=== PATIENT | female | born 1965 | race American Indian/Alaskan Native ===

== ENCOUNTER 2018-03-19 08:21 | Inpatient (IN) | payer OTHER ==
[2018-03-19] MEDS ORDERED: NACL 0.9% 1000 ML 1,000 ML IV ONE (08:28)
[2018-03-19 09:13] LABS: Basophils % (Auto) 0.2 % (0.0-1.8); Eosinophils # (Auto) 0.1 K/mm3 (0.0-0.4); Eosinophils % (Auto) 0.7 % (0.0-4.3); Hematocrit 33.7 % (30.3-42.9); Hemoglobin 10.6 gm/dl (10.1-14.3); Lymphocytes # (Auto) 1.7 K/mm3 (1.2-5.4); Lymphocytes % (Auto) 14.5 % (13.4-35.0); Mean Corpuscular HGB Conc 31 % (30-34); Mean Corpuscular Volume 73 fl (79-97); Monocytes # (Auto) 0.6 K/mm3 (0.0-0.8); Monocytes % (Auto) 5.4 % (0.0-7.3); Platelet Count 425 K/mm3 (140-440); Red Cell Distribution Width 17.8 % (13.2-15.2)
[2018-03-19 09:13] LABS: Alanine Aminotransferase 17 units/L (7-56); Albumin 3.5 g/dL (3.9-5); BUN/Creatinine Ratio 15; Blood Urea Nitrogen 12 mg/dL (7-17); Calcium 9.4 mg/dL (8.4-10.2); Hemolysis Index 8
--- NOTE | 2018-03-19 10:09 | Emergency Department Report ---
ED Abdominal Pain HPI - General Chief Complaint: Abdominal Pain Stated Complaint: VOMITING BLOOD/ABD PAIN Time Seen by Provider: 03/19/18 10:03 Source: patient Mode of arrival: Ambulatory Limitations: No Limitations - History of Present Illness Initial Comments: Patient is a 53-year-old female presents to emergency room with complaints of abdominal pain 3 days and nausea and vomiting for 3 days. Patient states that she has not been able hold anything down for the 3 days. Patient states this morning she had vomited blood. He states it was dark blood as well as bright red blood in her vomitus. Patient denies chest pain shortness of breath. Patie nt denies fever or chills. Patient denies diarrhea. Patient denies what in stool. Patient states that the pain in her abdomen is a 6 out of 10 and is intermittent and spasmodic. Patient describes the pain as a sharp pain and intense that goes away every few minutes. Patient states the pain is n onradiating MD Complaint: abdominal pain -: Sudden Location: diffuse Radiation: none Migration to: no migration Severity: moderate Severity scale (0 -10): 6 Quality: sharp Consistency: intermittent Improves With: rest Worsens With: eating, vomiting, movement Associated Symptoms: nausea, vomiting, hematemesis. denies: diarrhea, fever, chills, constipation, dysuria, hematochezia, melena, hematuria, anorexia, syncope - Related Data LMP (females 10-50): unknown Allergies Allergy/AdvReac Type Severity Reaction Status Date / Time No Known Allergies Allergy Unverified 03/19/18 08:28 ED Review of Systems ROS: Stated complaint: VOMITING BLOOD/ABD PAIN Other details as noted in HPI Constitutional: denies: chills, fever Eyes: denies: eye pain, eye discharge, vision change ENT: denies: ear pain, throat pain Respiratory: denies: cough, shortness of breath, wheezing Cardiovascular: denies: chest pain, palpitations Endocrine: no symptoms reported Gastrointestinal: abdominal pain, nausea, vomiting, hematemesis. denies: diarrhea, melena, hematochezia Genitourinary: denies: urgency, dysuria, discharge Musculoskeletal: denies: back pain, joint swelling, arthralgia Skin: denies: rash, lesions Neurological: denies: headache, weakness, paresthesias Psychiatric: denies: anxiety, depression Hematological/Lymphatic: denies: easy bleeding, easy bruising ED Past Medical Hx - Past Medical History Previous Medical History?: Yes Additional medical history: Ankylosing spondylitis - Surgical History Past Surgical History?: No - Family History Family history: no significant - Social History Smoking Status: Never Smoker Substance Use Type: None ED Physical Exam - General Limitations: No Limitations General appearance: alert, in no apparent distress - Head Head exam: Present: atraumatic, normocephalic - Eye Eye exam: Present: normal appearance - ENT ENT exam: Present: mucous membranes moist - Neck Neck exam: Present: normal inspection - Respiratory Respiratory exam: Present: normal lung sounds bilaterally. Absent: respiratory distress - Cardiovascular Cardiovascular Exam: Present: regular rate, normal rhythm. Absent: systolic murmur, diastolic murmur, rubs, gallop - GI/Abdominal GI/Abdominal exam: Present: soft, tenderness (generalized tenderness), normal bowel sounds - Rectal Rectal exam: Present: normal rectal tone, heme (+) stool. Absent: hemorrhoids - Extremities Exam Extremities exam: Present: normal inspection - Back Exam Back exam: Present: normal inspection - Neurological Exam Neurological exam: Present: alert, oriented X3 - Psychiatric Psychiatric exam: Present: normal affect, normal mood - Skin Skin exam: Present: warm, dry, intact, normal color. Absent: rash ED Course Vital Signs 03/19/18 03/19/18 03/19/18 08:25 10:00 10:30 Temperature 97.7 F Pulse Rate 88 73 Respiratory 20 16 16 Rate Blood Pressure 209/93 169/86 Blood Pressure [Left] O2 Sat by Pulse 98 98 98 Oximetry 03/19/18 03/19/18 03/19/18 11:00 11:30 14:30 Temperature Pulse Rate 65 64 80 Respiratory 22 17 16 Rate Blood Pressure 151/61 157/72 Blood Pressure 152/77 [Left] O2 Sat by Pulse 97 98 98 Oximetry 03/19/18 03/19/18 03/19/18 16:30 19:15 19:44 Temperature Pulse Rate 81 74 74 Respiratory 16 18 Rate Blood Pressure 172/84 Blood Pressure 156/75 172/84 [Left] O2 Sat by Pulse 98 98 Oximetry - Reevaluation(s) Reevaluation #1: Discussed results with patient. Rectal exam done. Occult positive. Nurse Sierra in the room during the entire exam 03/19/18 13:34 CT abdomen still pending. Patient's pain is controlled.. 03/19/18 15:37 - Consultations Consultation #1: GI consult. Dr. Watkins wants patient admitted to the hospitalist service. 03/19/18 18:34 Consultation #2: Hospitalist consult for admission. Hospitalist to admit patient and assume care of patient. 03/19/18 18:34 ED Medical Decision Making - Lab Data Result diagrams: 03/19/18 08:40 03/19/18 08:39 - Radiology Data Radiology results: report reviewed FINAL REPORT EXAM: CT ABDOMEN PELVIS W CON HISTORY: abd pain. vomiting blood COMPARISON: None available. TECHNIQUE: Contiguous axial images were obtained. Additional sagittal and coronal reformatted images were obtained. Administration of IV contrast given per institution protocol. Images submitted for interpretation. Enteric contrast administered. FINDINGS: Exam is limited by patient body habitus is well as arm positioning along the anterior margin of the abdomen. Linear atelectasis at the lung bases. Visualized distal esophagus is relatively decompressed. Proximal stomach is decompressed. No gross inflammatory changes of the stomach. No adjacent fat stranding or fluid. Enteric contrast opacifies the stomach and majority of small bowel loops and colon. Diverticulosis of left colon. No diverticulitis. No focal inflammatory changes the bowel. The appendix is normal in caliber. Liver, spleen, pancreas and adrenal glands are grossly unremarkable. No calcified gallstones. No solid renal lesion. Bilateral nonobstructive renal calculi. Aorta is normal in caliber. Streak artifact from bilateral hip replacement limits evaluation of the soft tissue structures in the pelvis. The visualized urinary bladder appears partially decompressed. Slight lobulated contour the uterus. There may be underlying fibroids. Ovaries are grossly unremarkable. No free fluid or lymphadenopathy in the abdomen and pelvis. No free air pneumatosis. Ankylosis of the lumbar spine. Ankylosis of the SI joints. IMPRESSION: No gross inflammatory changes the visualized distal esophagus and stomach. Large and small bowel loops normal in caliber. The appendix is normal in caliber. Bilateral nonobstructive renal calculi. No hydronephrosis bilaterally. No other gross acute findings. Limited exam as described above. - Medical Decision Making Patient is a 53-year-old female that presents emergency room with abdominal pain and vomiting blood. Patient had positive Hemoccult. GI consultation recommends admission. Hospitalist to admit patient. Patient's labs unremarkable. CT is negative. - Differential Diagnosis abdominal pain. Nausea and vomiting. GI bleed. Critical Care Time: Yes Critical care attestation.: If time is entered above; I have spent that time in minutes in the direct care of this critically ill patient, excluding procedure time. Critical Care Time: 45 minutes ED Disposition Clinical Impression: GI bleed Qualifiers: GI bleed type/associated pathology: unspecified gastrointestinal hemorrhage type Qualified Code(s): K92.2 - Gastrointestinal hemorrhage, unspecified Abdominal pain Qualifiers: Abdominal location: generalized Qualified Code(s): R10.84 - Generalized abdominal pain Nausea & vomiting Qualifiers: Vomiting type: unspecified Vomiting Intractability: non-intractable Qualified Code(s): R11.2 - Nausea with vomiting, unspecified Disposition: DC-09 OP ADMIT IP TO THIS HOSP Is pt being admited?: Yes Does the pt Need Aspirin: No Condition: Critical Time of Disposition: 18:35
[2018-03-19 12:45] LABS: Bacteria,Urine 2+ /HPF (Negative); Bilirubin,Urine NEG (Negative); Blood,Urine SM (Negative); Color,Urine Yellow (Yellow); Mucus,Urine FEW /HPF
--- NOTE | 2018-03-19 17:42 | Cat Scan Report ---
FINAL REPORT EXAM: CT ABDOMEN PELVIS W CON HISTORY: abd pain. vomiting blood COMPARISON: None available. TECHNIQUE: Contiguous axial images were obtained. Additional sagittal and coronal reformatted images were obtained. Administration of IV contrast given per institution protocol. Images submitted for in terpretation. Enteric contrast administered. FINDINGS: Exam is limited by patient body habitus is well as arm positioning along the anterior margin of the a bdomen. Linear atelectasis at the lung bases. Visualized distal esophagus is relatively decompressed. Proxima l stomach is decompressed. No gross inflammatory changes of the stomach. No adjacent fat stranding or fluid. Enteric contrast opacifies the stomach and majority of small bowel loops and colon. Diverticu losis of left colon. No diverticulitis. No focal inflammatory changes the bowel. The appendix is norm al in caliber. Liver, spleen, pancreas and adrenal glands are grossly unremarkable. No calcified gallstones. No suellen d renal lesion. Bilateral nonobstructive renal calculi. Aorta is normal in caliber. Streak artifact f rom bilateral hip replacement limits evaluation of the soft tissue structures in the pelvis. The visu alized urinary bladder appears partially decompressed. Slight lobulated contour the uterus. There may be underlying fibroids. Ovaries are grossly unremarkable. No free fluid or lymphadenopathy in the ab domen and pelvis. No free air pneumatosis. Ankylosis of the lumbar spine. Ankylosis of the SI joints. IMPRESSION: No gross inflammatory changes the visualized distal esophagus and stomach. Large and small bowel loop s normal in caliber. The appendix is normal in caliber. Bilateral nonobstructive renal calculi. No hydronephrosis bilaterally. No other gross acute findings. Limited exam as described above.
[2018-03-19] MEDS ORDERED: DILAUDID IV ONE (19:26)
[2018-03-19] MEDS ORDERED: DILAUDID ONE (19:38)
[2018-03-19] MEDS ORDERED: APRESOLINE ONE (19:39)
[2018-03-19] MEDS: APRESOLINE IV PRN (19:44)
[2018-03-19] MEDS ORDERED: SODIUM CHLORIDE FLUSH SYRINGE 10 ML IV PRN (21:10)
[2018-03-19] MEDS ORDERED: DILAUDID IV PRN (21:10)
[2018-03-19] MEDS ORDERED: REGLAN PO PRN (21:10)
[2018-03-19] MEDS ORDERED: TYLENOL PO PRN (21:10)
[2018-03-19] MEDS ORDERED: ZOFRAN IV PRN (21:10)
--- NOTE | 2018-03-19 21:10 | Event Note ---
Date: 03/19/18 See H/p in reports GI Bleed
[2018-03-19] MEDS ORDERED: PEPCID IV SCH (22:00)
[2018-03-19] MEDS: PROTONIX 80 MG in NACL 0.9% 100 ML IV SCH (22:54)
[2018-03-19] MEDS: SODIUM CHLORIDE FLUSH SYRINGE 10 ML IV SCH (22:55)
[2018-03-19 23:44] LABS: Hematocrit 30.4 % (30.3-42.9); Hemoglobin 9.6 gm/dl (10.1-14.3)
[2018-03-20] MEDS: NACL 0.9% 1000 ML 1,000 ML IV SCH ×2 (00:09→09:44)
[2018-03-20] MEDS: PROTONIX 80 MG in NACL 0.9% 100 ML IV SCH (06:57)
[2018-03-20 06:58] LABS: Basophils % (Auto) 0.4 % (0.0-1.8); Eosinophils # (Auto) 0.1 K/mm3 (0.0-0.4); Hematocrit 28.2 % (30.3-42.9); Hemoglobin 9.1 gm/dl (10.1-14.3); Lymphocytes # (Auto) 1.7 K/mm3 (1.2-5.4); Lymphocytes % (Auto) 17.2 % (13.4-35.0); Mean Corpuscular HGB Conc 32 % (30-34); Mean Corpuscular Volume 72 fl (79-97); Monocytes # (Auto) 0.6 K/mm3 (0.0-0.8); Monocytes % (Auto) 5.9 % (0.0-7.3); Platelet Count 354 K/mm3 (140-440); Red Blood Count 3.92 M/mm3 (3.65-5.03); Red Cell Distribution Width 17.6 % (13.2-15.2)
--- NOTE | 2018-03-20 06:59 | History and Physical Report ---
CHIEF COMPLAINT: 1. Abdominal pain. 2. Nausea and vomiting. 3. Blood in the vomitus. HISTORY OF PRESENT ILLNESS: A 53-year-old female with a history of ankylosing spondylitis, comes in for abdominal pain of 3 days associated with vomiting about 3-4 times a day. Apparently, the patient vomited blood while vomiting. No diarrhea. No black tarry stools. Abdominal pain is about 6-8 on a scale of 1-10, which is intermittent in nature and sharp in nature. No exacerbating or relieving factors. PAST MEDICAL HISTORY: Significant for ankylosing spondylitis. PAST SURGICAL HISTORY: None. FAMILY HISTORY: Not significant. SOCIAL HISTORY: Does not smoke. REVIEW OF SYSTEMS: Significant for vomiting blood and intermittent abdominal pain. Otherwise, review of systems is negative. PHYSICAL EXAMINATION: GENERAL: Middle-aged female, cooperative during examination. VITAL SIGNS: Blood pressure is 139/52 and 172/84, temperature is 97.8, pulse is 74, respirations are 18. HEENT: Unremarkable. Pupils equal and reactive. NECK: Supple, no lymphadenopathy, no thyromegaly. LUNGS: Clear to auscultation and percussion. Good air entry. CARDIOVASCULAR: S1, S2 heard. No gallop, no murmur, no rub. Apical impulse in left fifth intercostal space and midclavicular line. ABDOMEN: Soft and benign. No guarding, no rigidity. RECTAL: Deferred. EXTREMITIES: Good pedal pulses. No pedal edema. CENTRAL NERVOUS SYSTEM: Alert and oriented x 4, nonfocal exam. SKIN: Normal. LABORATORY DATA: Significant for H and H of 10.6 and 33.7, white count of 11,600. Sodium is 138, potassium is 3.5, total protein is 8.8, albumin is 3.5, glucose is 108. Urine wbc 86. ASSESSMENT AND PLAN: 1. Upper gastrointestinal bleed. The patient started on Protonix drip. GI consult requested. Hemoglobin and hematocrit every 8 hours. Transfuse if necessary. 2. Urinary tract infection. The patient started on IV ceftriaxone. Pending cultures. 3. Malnutrition, mild to moderate. Dietitian consult after patient is taking food by mouth. 4. Hypokalemia, mild, supplemented. 5. Deep venous thrombosis prophylaxis, sequential compression devices and gastrointestinal prophylaxis. JOB# [id number] [facility]/SHAJI LOERA
[2018-03-20 07:08] LABS: Alanine Aminotransferase 13 units/L (7-56); Albumin 3.2 g/dL (3.9-5); BUN/Creatinine Ratio 15; Blood Urea Nitrogen 9 mg/dL (7-17); Calcium 8.8 mg/dL (8.4-10.2); Hemolysis Index 4
[2018-03-20] MEDS: ROCEPHIN/NS 2 GM/100 ML 2 GM/100 ML BAG IV SCH (08:37)
[2018-03-20] MEDS ORDERED: NACL 0.9% 1000 ML 1,000 ML IV SCH (09:00)
--- NOTE | 2018-03-20 09:11 | Gastroenterology Consultation ---
<DAVIE FERNANDEZ - Last Filed: 03/20/18 09:12> History of Present Illness - Reason for Consult Consult date: 03/20/18 GI bleed Requesting physician: YOBANI RICE III - History of Present Illness Patient is a 3 y/o female with PMH of ankylosing spondylitis and obesity who presented to ED with c/o upper abdominal pain and N/V x 3 days with bloody emesis to which GI has been consulted. This morning patient was resting in bed w/o acute distress. Family at bedside. She reports starting Cipro for an UTI last week and then developed abd pain with N/V for 2-3 days. Emesis was non- bloody for the first couple of days and then turned to coffee-ground color, along with black stools yesterday. No hematemesis or hematochezia. Last episode of CGE was yesterday and last episode of melena was overnight. No active signs of bleeding this am. Denies CP, SOB, dizziness, wt loss, dysphagia, odynophagia, diarrhea, or constipation. Takes Ibuprofen frequently at home. Hx of previous GI bleeding 2/2 a M-W tear approximately 19 years ago diagnosed with undergoing an EGD. No hx of liver disease. Past History Past Medical History: other (Ankylosing spondylitis, obesity) Past Surgical History: Other (bilateral hip) Social history: , lives with family. denies: smoking, alcohol abuse Medications and Allergies Allergies Allergy/AdvReac Type Severity Reaction Status Date / Time No Known Allergies Allergy Unverified 03/19/18 08:28 Active Meds: Active Medications Acetaminophen (Tylenol) 650 mg PO Q4H PRN PRN Reason: Pain MILD(1-3)/Fever >100.5/RUELAS Clonidine HCl (Catapres-Tts Patch) 0.1 mg TD QWEEK MARCO Hydralazine HCl (Apresoline) 5 mg IV Q3HR PRN PRN Reason: Elevated BP Last Admin: 03/19/18 19:44 Dose: 5 mg Documented by: Hydromorphone HCl (Dilaudid) 0.5 mg IV Q3H PRN PRN Reason: Pain , Severe (7-10) Sodium Chloride (Nacl 0.9% 1000 Ml) 1,000 mls @ 75 mls/hr IV DIRECT MARCO Last Admin: 03/20/18 00:09 Dose: 75 mls/hr Documented by: Pantoprazole Sodium 80 mg/ (Sodium Chloride) 100 mls @ 10 mls/hr IV DIRECT MARCO Last Admin: 03/20/18 06:57 Dose: 8 mg/hr, 10 mls/hr Documented by: Ceftriaxone Sodium (Rocephin/Ns 2 Gm/100 Ml) 2 gm in 100 mls @ 200 mls/hr IV Q24HR MARCO; Protocol Last Admin: 03/20/18 08:37 Dose: 200 mls/hr Documented by: Sodium Chloride (Nacl 0.9% 1000 Ml) 1,000 mls @ 50 mls/hr IV DIRECT MARCO Metoclopramide HCl (Reglan) 10 mg PO Q6H PRN PRN Reason: Nausea And Vomiting Ondansetron HCl (Zofran) 4 mg IV Q8H PRN PRN Reason: Nausea And Vomiting Last Admin: 03/20/18 00:09 Dose: 4 mg Documented by: Sodium Chloride (Sodium Chloride Flush Syringe 10 Ml) 10 ml IV BID MARCO Last Admin: 03/19/18 22:55 Dose: 10 ml Documented by: Sodium Chloride (Sodium Chloride Flush Syringe 10 Ml) 10 ml IV PRN PRN PRN Reason: LINE FLUSH medications reviewed/updated as required Review of Systems - Review of Systems All systems: negative Gastrointestinal: abdominal pain (epigastric), nausea, vomiting, coffee ground emesis, melena Exam - Constitutional Vital Signs: Temp Pulse Resp BP Pulse Ox 97.8 F 76 20 148/74 95 03/20/18 05:22 03/20/18 05:22 03/20/18 05:22 03/20/18 05:22 03/20/18 05:22 General appearance: no acute distress, obese - EENT Eyes: PERRL, EOM intact ENT: hearing intact - Respiratory Respiratory: bilateral: CTA - Cardiovascular Rhythm: regular Heart Sounds: Present: S1 & S2 - Gastrointestinal General gastrointestinal: Present: soft, tender (slightl TTP in epigastric area), non-distended, normal bowel sounds - Neurologic Neurological: alert and oriented x3 - Labs CBC & Chem 7: 03/20/18 06:10 03/20/18 06:10 Lab Results: Laboratory Results - last 24 hr 03/19/18 03/19/18 03/19/18 08:39 08:40 11:58 WBC 11.6 H RBC 4.60 Hgb 10.6 Hct 33.7 MCV 73 L MCH 23 L MCHC 31 RDW 17.8 H Plt Count 425 Lymph % (Auto) 14.5 [place] % (Auto) 5.4 Eos % (Auto) 0.7 Baso % (Auto) 0.2 Lymph # 1.7 [place] # 0.6 Eos # 0.1 Baso # 0.0 Seg Neutrophils % 79.2 H Seg Neutrophils # 9.2 H Sodium 138 Potassium 3.5 L Chloride 99.1 Carbon Dioxide 25 Anion Gap 17 BUN 12 Creatinine 0.8 Estimated GFR > 60 BUN/Creatinine Ratio 15 Glucose 108 H Lactic Acid Calcium 9.4 Total Bilirubin 0.30 AST 24 ALT 17 Alkaline Phosphatase 81 Total Protein 8.8 H Albumin 3.5 L Albumin/Globulin Ratio 0.7 Urine Color Yellow Urine Turbidity Cloudy Urine pH 6.0 Ur Specific [place] 1.020 Urine Protein 30 mg/dl Urine Glucose (UA) Neg Urine Ketones Tr Urine Blood Sm Urine Nitrite Neg Urine Bilirubin Neg Urine Urobilinogen 4.0 Ur Leukocyte Esterase Lg Urine WBC (Auto) 86.0 H Urine RBC (Auto) 19.0 U Epithel Cells (Auto) 22.0 H Urine Bacteria (Auto) 2+ Urine Mucus Few 03/19/18 03/19/18 03/20/18 15:25 23:30 06:10 WBC 9.8 RBC 3.92 Hgb 9.6 L 9.1 L Hct 30.4 28.2 L MCV 72 L MCH 23 L MCHC 32 RDW 17.6 H Plt Count 354 Lymph % (Auto) 17.2 [place] % (Auto) 5.9 Eos % (Auto) 1.0 Baso % (Auto) 0.4 Lymph # 1.7 [place] # 0.6 Eos # 0.1 Baso # 0.0 Seg Neutrophils % 75.5 H Seg Neutrophils # 7.4 Sodium Potassium Chloride Carbon Dioxide Anion Gap BUN Creatinine Estimated GFR BUN/Creatinine Ratio Glucose Lactic Acid 0.90 Calcium Total Bilirubin AST ALT Alkaline Phosphatase Total Protein Albumin Albumin/Globulin Ratio Urine Color Urine Turbidity Urine pH Ur Specific [place] Urine Protein Urine Glucose (UA) Urine Ketones Urine Blood Urine Nitrite Urine Bilirubin Urine Urobilinogen Ur Leukocyte Esterase Urine WBC (Auto) Urine RBC (Auto) U Epithel Cells (Auto) Urine Bacteria (Auto) Urine Mucus 03/20/18 06:10 WBC RBC Hgb Hct MCV MCH MCHC RDW Plt Count Lymph % (Auto) [place] % (Auto) Eos % (Auto) Baso % (Auto) Lymph # [place] # Eos # Baso # Seg Neutrophils % Seg Neutrophils # Sodium 139 Potassium 3.9 Chloride 103.0 Carbon Dioxide 24 Anion Gap 16 BUN 9 Creatinine 0.6 L Estimated GFR > 60 BUN/Creatinine Ratio 15 Glucose 89 Lactic Acid Calcium 8.8 Total Bilirubin 0.30 AST 19 ALT 13 Alkaline Phosphatase 69 Total Protein 7.3 Albumin 3.2 L Albumin/Globulin Ratio 0.8 Urine Color Urine Turbidity Urine pH Ur Specific [place] Urine Protein Urine Glucose (UA) Urine Ketones Urine Blood Urine Nitrite Urine Bilirubin Urine Urobilinogen Ur Leukocyte Esterase Urine WBC (Auto) Urine RBC (Auto) U Epithel Cells (Auto) Urine Bacteria (Auto) Urine Mucus Assessment and Plan 1.UGIB -H/H 9.1/28.2-trending down -continue to monitor H/H and transfuse as needed -hold blood thinning medications -patient reports epigastric pain and N/V x 3 days after starting antibiotics for UTI with developing coffee-ground emesis and melena yesterday -currently HD stable- no active signs of bleeding this am -etiology-possibly 2/2 M-W tear vs ulcer vs other -EGD this am for further evaluation -Keep NPO -continue PPI and supportive care -will follow <CORINNE PAGE - Last Filed: 03/20/18 10:40> Medications and Allergies Active Meds: Active Medications Acetaminophen (Tylenol) 650 mg PO Q4H PRN PRN Reason: Pain MILD(1-3)/Fever >100.5/RUELAS Clonidine HCl (Catapres-Tts Patch) 0.1 mg TD QWEEK MARCO Hydralazine HCl (Apresoline) 5 mg IV Q3HR PRN PRN Reason: Elevated BP Last Admin: 03/19/18 19:44 Dose: 5 mg Documented by: Hydromorphone HCl (Dilaudid) 0.5 mg IV Q3H PRN PRN Reason: Pain , Severe (7-10) Sodium Chloride (Nacl 0.9% 1000 Ml) 1,000 mls @ 75 mls/hr IV DIRECT MARCO Last Admin: 03/20/18 09:44 Dose: 75 mls/hr Documented by: Pantoprazole Sodium 80 mg/ (Sodium Chloride) 100 mls @ 10 mls/hr IV DIRECT MARCO Last Admin: 03/20/18 06:57 Dose: 8 mg/hr, 10 mls/hr Documented by: Ceftriaxone Sodium (Rocephin/Ns 2 Gm/100 Ml) 2 gm in 100 mls @ 200 mls/hr IV Q24HR MACRO; Protocol Last Admin: 03/20/18 08:37 Dose: 200 mls/hr Documented by: Sodium Chloride (Nacl 0.9% 1000 Ml) 1,000 mls @ 50 mls/hr IV DIRECT MARCO Stop: 03/21/18 08:59 Metoclopramide HCl (Reglan) 10 mg PO Q6H PRN PRN Reason: Nausea And Vomiting Ondansetron HCl (Zofran) 4 mg IV Q8H PRN PRN Reason: Nausea And Vomiting Last Admin: 03/20/18 00:09 Dose: 4 mg Documented by: Sodium Chloride (Sodium Chloride Flush Syringe 10 Ml) 10 ml IV BID MARCO Last Admin: 03/19/18 22:55 Dose: 10 ml Documented by: Sodium Chloride (Sodium Chloride Flush Syringe 10 Ml) 10 ml IV PRN PRN PRN Reason: LINE FLUSH Exam - Constitutional Vital Signs: Temp Pulse Resp BP Pulse Ox 97.8 F 71 18 161/72 100 03/20/18 09:39 03/20/18 09:39 03/20/18 09:39 03/20/18 09:39 03/20/18 09:39 - Labs CBC & Chem 7: 03/20/18 06:10 03/20/18 06:10 Lab Results: Laboratory Results - last 24 hr 03/19/18 03/19/18 03/19/18 11:58 15:25 23:30 WBC RBC Hgb 9.6 L Hct 30.4 MCV MCH MCHC RDW Plt Count Lymph % (Auto) [place] % (Auto) Eos % (Auto) Baso % (Auto) Lymph # [place] # Eos # Baso # Seg Neutrophils % Seg Neutrophils # Sodium Potassium Chloride Carbon Dioxide Anion Gap BUN Creatinine Estimated GFR BUN/Creatinine Ratio Glucose Lactic Acid 0.90 Calcium Total Bilirubin AST ALT Alkaline Phosphatase Total Protein Albumin Albumin/Globulin Ratio Urine Color Yellow Urine Turbidity Cloudy Urine pH 6.0 Ur Specific [place] 1.020 Urine Protein 30 mg/dl Urine Glucose (UA) Neg Urine Ketones Tr Urine Blood Sm Urine Nitrite Neg Urine Bilirubin Neg Urine Urobilinogen 4.0 Ur Leukocyte Esterase Lg Urine WBC (Auto) 86.0 H Urine RBC (Auto) 19.0 U Epithel Cells (Auto) 22.0 H Urine Bacteria (Auto) 2+ Urine Mucus Few 03/20/18 03/20/18 06:10 06:10 WBC 9.8 RBC 3.92 Hgb 9.1 L Hct 28.2 L MCV 72 L MCH 23 L MCHC 32 RDW 17.6 H Plt Count 354 Lymph % (Auto) 17.2 [place] % (Auto) 5.9 Eos % (Auto) 1.0 Baso % (Auto) 0.4 Lymph # 1.7 [place] # 0.6 Eos # 0.1 Baso # 0.0 Seg Neutrophils % 75.5 H Seg Neutrophils # 7.4 Sodium 139 Potassium 3.9 Chloride 103.0 Carbon Dioxide 24 Anion Gap 16 BUN 9 Creatinine 0.6 L Estimated GFR > 60 BUN/Creatinine Ratio 15 Glucose 89 Lactic Acid Calcium 8.8 Total Bilirubin 0.30 AST 19 ALT 13 Alkaline Phosphatase 69 Total Protein 7.3 Albumin 3.2 L Albumin/Globulin Ratio 0.8 Urine Color Urine Turbidity Urine pH Ur Specific [place] Urine Protein Urine Glucose (UA) Urine Ketones Urine Blood Urine Nitrite Urine Bilirubin Urine Urobilinogen Ur Leukocyte Esterase Urine WBC (Auto) Urine RBC (Auto) U Epithel Cells (Auto) Urine Bacteria (Auto) Urine Mucus Assessment and Plan Pt seen and examined. Agree with note above. Will plan for EGD today. Further recommendations following procedure. Rest as above.
--- NOTE | 2018-03-20 09:46 | Progress Note ---
Assessment and Plan Assessment and plan: Patient is a 53 y/o female with PMH of ankylosing spondylitis and obesity who presented to ED with c/o upper abdominal pain and N/V x 3 days with bloody emesis to which GI has been consulted. This morning patient was resting in bed w/o acute distress. Family at bedside. She reports starting Cipro for an UTI last week and then developed abd pain with N/V for 2-3 days. Emesis was non- bloody for the first couple of days and then turned to coffee-ground color, along with black stools yesterday. No hematemesis or hematochezia. Last episode of coffee-ground emesis was yesterday and last episode of melena was overnight. No active signs of bleeding this am. Denies CP, SOB, dizziness, wt loss, dysphagia, odynophagia, diarrhea, or constipation. Takes Ibuprofen frequently at home. Hx of previous GI bleeding 2/2 a M-W tear approximately 19 years ago diagnosed with undergoing an EGD. No hx of liver disease. On admission the patient was being monitored with serial H&H and plan for endoscopy today. She was provided about NSAID use to discontinue. Peritoneal Irritation UGIB PYURIA- RECENTLY TREATED FOR UTI HYPOKALEMIA Morbidly Obese NSAID USE ANKYLOSING SPONDYLITIS PLAN Supportive care H/H Relatively stable Await EGD RESULT CONTINUE PPI DVT/GI PROPHY PLAN DISCUSSED WITH THE PATIENT. History Interval history: Patient seen and examined, in no acute distress. admitted with suspicion for GI bleed. Hospitalist Physical - Physical exam Narrative exam: VITAL SIGNS: Reviewed. GENERAL: The patient appeared well nourished and normally developed. Otherwise obese. Vital signs as documented. HEAD: No signs of head trauma. EYES: Pupils are equal. Extraocular motions intact. EARS: Hearing grossly intact. MOUTH: Oropharynx is normal. NECK: No adenopathy, no JVD. CHEST: Chest with clear breath sounds bilaterally. No wheezes, rales, or rhonchi. CARDIAC: Regular rate and rhythm. S1 and S2, without murmurs, gallops, or rubs. VASCULAR: No Edema. Peripheral pulses normal and equal in all extremities. ABDOMEN: Soft, without detectable tenderness. No sign of distention. No rebound or guarding, and no masses palpated. Bowel Sounds normal. MUSCULOSKELETAL: Good range of motion of all major joints. Extremities without clubbing, cyanosis or edema. NEUROLOGIC EXAM: Alert and oriented x 3. No focal sensory or strength deficits. Speech normal. Follows commands. PSYCHIATRIC: Mood normal. SKIN: No rash or lesions. - Constitutional Vitals: Temp Pulse Resp BP Pulse Ox 97.8 F 71 18 161/72 100 03/20/18 09:39 03/20/18 09:39 03/20/18 09:39 03/20/18 09:39 03/20/18 09:39 Results - Labs CBC & Chem 7: 03/20/18 13:22 03/20/18 06:10 Labs: Laboratory Last Values WBC 9.8 K/mm3 (4.5-11.0) 03/20/18 06:10 RBC 3.92 M/mm3 (3.65-5.03) 03/20/18 06:10 Hgb 9.1 gm/dl (10.1-14.3) L 03/20/18 06:10 Hct 28.2 % (30.3-42.9) L 03/20/18 06:10 MCV 72 fl (79-97) L 03/20/18 06:10 MCH 23 pg (28-32) L 03/20/18 06:10 MCHC 32 % (30-34) 03/20/18 06:10 RDW 17.6 % (13.2-15.2) H 03/20/18 06:10 Plt Count 354 K/mm3 (140-440) 03/20/18 06:10 Lymph % (Auto) 17.2 % (13.4-35.0) 03/20/18 06:10 [place] % (Auto) 5.9 % (0.0-7.3) 03/20/18 06:10 Eos % (Auto) 1.0 % (0.0-4.3) 03/20/18 06:10 Baso % (Auto) 0.4 % (0.0-1.8) 03/20/18 06:10 Lymph # 1.7 K/mm3 (1.2-5.4) 03/20/18 06:10 [place] # 0.6 K/mm3 (0.0-0.8) 03/20/18 06:10 Eos # 0.1 K/mm3 (0.0-0.4) 03/20/18 06:10 Baso # 0.0 K/mm3 (0.0-0.1) 03/20/18 06:10 Seg Neutrophils % 75.5 % (40.0-70.0) H 03/20/18 06:10 Seg Neutrophils # 7.4 K/mm3 (1.8-7.7) 03/20/18 06:10 Sodium 139 mmol/L (137-145) 03/20/18 06:10 Potassium 3.9 mmol/L (3.6-5.0) 03/20/18 06:10 Chloride 103.0 mmol/L (98-107) 03/20/18 06:10 Carbon Dioxide 24 mmol/L (22-30) 03/20/18 06:10 Anion Gap 16 mmol/L 03/20/18 06:10 BUN 9 mg/dL (7-17) 03/20/18 06:10 Creatinine 0.6 mg/dL (0.7-1.2) L 03/20/18 06:10 Estimated GFR > 60 ml/min 03/20/18 06:10 BUN/Creatinine Ratio 15 % 03/20/18 06:10 Glucose 89 mg/dL (65-100) 03/20/18 06:10 Lactic Acid 0.90 mmol/L (0.7-2.0) 03/19/18 15:25 Calcium 8.8 mg/dL (8.4-10.2) 03/20/18 06:10 Total Bilirubin 0.30 mg/dL (0.1-1.2) 03/20/18 06:10 AST 19 units/L (5-40) 03/20/18 06:10 ALT 13 units/L (7-56) 03/20/18 06:10 Alkaline Phosphatase 69 units/L (35-129) 03/20/18 06:10 Total Protein 7.3 g/dL (6.3-8.2) 03/20/18 06:10 Albumin 3.2 g/dL (3.9-5) L 03/20/18 06:10 Albumin/Globulin Ratio 0.8 % 03/20/18 06:10 Urine Color Yellow (Yellow) 03/19/18 11:58 Urine Turbidity Cloudy (Clear) 03/19/18 11:58 Urine pH 6.0 (5.0-7.0) 03/19/18 11:58 Ur Specific [place] 1.020 (1.003-1.030) 03/19/18 11:58 Urine Protein 30 mg/dl mg/dL (Negative) 03/19/18 11:58 Urine Glucose (UA) Neg mg/dL (Negative) 03/19/18 11:58 Urine Ketones Tr mg/dL (Negative) 03/19/18 11:58 Urine Blood Sm (Negative) 03/19/18 11:58 Urine Nitrite Neg (Negative) 03/19/18 11:58 Urine Bilirubin Neg (Negative) 03/19/18 11:58 Urine Urobilinogen 4.0 mg/dL (<2.0) 03/19/18 11:58 Ur Leukocyte Esterase Lg (Negative) 03/19/18 11:58 Urine WBC (Auto) 86.0 /HPF (0.0-6.0) H 03/19/18 11:58 Urine RBC (Auto) 19.0 /HPF (0.0-6.0) 03/19/18 11:58 U Epithel Cells (Auto) 22.0 /HPF (0-13.0) H 03/19/18 11:58 Urine Bacteria (Auto) 2+ /HPF (Negative) 03/19/18 11:58 Urine Mucus Few /HPF 03/19/18 11:58
[2018-03-20] MEDS ORDERED: CATAPRES-TTS PATCH TD SCH (10:00)
--- NOTE | 2018-03-20 10:01 | Anesthesia Consultation ---
Anesthesia Consult and Med Hx - Airway Anesthetic Teeth Evaluation: Good ROM Head & Neck: Inadequate Mental/Hyoid Distance: Adequate Mallampati Class: Class II Intubation Access Assessment: Difficult - Pulmonary Exam CTA: Yes - Cardiac Exam Cardiac Exam: RRR - Pre-Operative Health Status ASA Pre-Surgery Classification: ASA3 Proposed Anesthetic Plan: MAC - Pulmonary Hx Asthma: No Hx Pneumonia: No - Central Nervous System Hx Psychiatric Problems: No - Other Systems Hx Obesity: Yes (morbid) - Additional Comments Anesthesia Medical History Comments: Patient has ankylosing spondylitis with severe cervical spine involvement. Her neck is essentially frozen in the flexed position. She would require fiber optic assistance for intubation.
[2018-03-20] MEDS ORDERED: DIPRIVAN 10 MG/ML IV ONE (10:21)
[2018-03-20] MEDS ORDERED: VERSED ONE (10:21)
[2018-03-20] MEDS ORDERED: WATER FOR IRRIG STERILE IR ONE (10:28)
--- NOTE | 2018-03-20 10:56 | Operative Report ---
Operative Report Operative Report: Esophagogastroduodenoscopy Procedure Note with Biopsies Date of procedure: 03/20/2018 Endoscopist: Kashif Watkins Pre-op diagnosis: UGI bleed, hematemesis Post-op diagnosis: Large, cratered gastric ulcer without high risk bleeding stigmata; severe erosive gastritis Anesthesia: MAC Complications: No immediate complications Estimated blood loss: minimal Procedure: After consent was obtained, the patient was placed in the left lateral decubitus position. The fujinon endoscope was inserted into the celestine ent's mouth under direct vision, and advanced into the 2nd portion of the duodenum without difficulty. The patient tolerated the procedure well. The views of the mucosa were good. Patient's vital signs were monitored continuously throughout the procedure. Findings: There was a non-obstructing, widely patent at the GE junction. Otherwise, the esophagus appeared normal. There was a large (~2 x 2 cm) cratered ulcer along the lesser curvature of the gastric body. There were a couple small heme spots, but no high risk bleeding stigmata. Biopsies were taking from the edge of the ulcer to rule out dysplasia/malignancy. There was severe erosive gastritis throughout the stomach. The duodenum appeared normal. Bile was seen throughout the visualized portion of the duodenum. Impression: 1. Large, cratered gastric ulcer without high risk bleeding stigmata. Biopsies were obtained. 2. Severe erosive gastritis. Biopsied. Recommendations: -follow-up pathology -avoid all nsaid medications -PPI po BID dosing -okay to restart diet and advance as tolerated
--- NOTE | 2018-03-20 11:04 | Post Anesthesia Evaluation ---
- Post Anesthesia Evaluation Patient Participated: Yes Airway Patent: Yes Stable Respiratory Function: Yes Temp > 96.8F: Yes Pain Manageable: Yes Adequeate Hydration: Yes Anesthesia Complications: No
[2018-03-20 13:38] LABS: Hematocrit 30.2 % (30.3-42.9); Hemoglobin 9.7 gm/dl (10.1-14.3)
[2018-03-20] MEDS: SODIUM CHLORIDE FLUSH SYRINGE 10 ML IV SCH ×2 (18:40→21:56)
[2018-03-20 19:11] LABS: Bacteria,Urine 1+ /HPF (Negative); Bilirubin,Urine NEG (Negative); Blood,Urine NEG (Negative); Color,Urine Yellow (Yellow); Mucus,Urine FEW /HPF; Protein,Urine <15 mg/dL mg/dL (Negative)
[2018-03-20] MEDS: PROTONIX IV SCH (21:56)
[2018-03-21] MEDS: NACL 0.9% 1000 ML 1,000 ML IV SCH (04:56)
[2018-03-21 05:16] LABS: Hematocrit 27.7 % (30.3-42.9); Hemoglobin 8.9 gm/dl (10.1-14.3); Mean Corpuscular HGB Conc 32 % (30-34); Mean Corpuscular Volume 73 fl (79-97); Platelet Count 337 K/mm3 (140-440); Red Blood Count 3.77 M/mm3 (3.65-5.03); Red Cell Distribution Width 17.3 % (13.2-15.2)
[2018-03-21 05:50] LABS: BUN/Creatinine Ratio 9; Blood Urea Nitrogen 8 mg/dL (7-17); Calcium 8.6 mg/dL (8.4-10.2); Hemolysis Index 3
[2018-03-21] MEDS: PROTONIX IV SCH (09:20)
[2018-03-21] MEDS: ROCEPHIN/NS 2 GM/100 ML 2 GM/100 ML BAG IV SCH (09:35)
[2018-03-21] MEDS: SODIUM CHLORIDE FLUSH SYRINGE 10 ML IV SCH ×2 (09:35→21:27)
--- NOTE | 2018-03-21 11:43 | Gastroenterology Progress Note ---
<DAVIE FERNANDEZ - Last Filed: 03/21/18 11:36> Assessment and Plan 1.UGIB -H/H 8.9/27.7-slight trend down -continue to monitor H/H and transfuse as needed -hold blood thinning medications -s/p EGD yesterday that revealed a large cratered gastric ulcer w/o high risk bleeding stigmata and severe erosive gastritis -bx results pending-f/u in clinic -clinically, patient is stable but reports continued BMs overnight and this am with black stool. Abd pain improved. No N/V. Tolerating liquids. -okay to advance to GI soft -continue PPI BID -avoid NSAIDs -continue supportive care -if labs stable in am with no further bleeding, okay to be d/c per GI standpoint on high dose PPI with follow up in clinic ~2 weeks Subjective Date of service: 03/21/18 Principal diagnosis: GI bleed Interval history: Patient resting in bed this am w/o acute distress. Reports BMs x 3 overnight and 1 this am with black stool. Abd pain improved and no N/V. Tolerating liquids. Objective - Constitutional Vitals: Temp Pulse Resp BP Pulse Ox 98.4 F 80 18 155/69 99 03/20/18 18:29 03/20/18 18:29 03/20/18 18:29 03/20/18 18:29 03/20/18 18:29 General appearance: no acute distress, obese - Respiratory Respiratory: bilateral: CTA (anterior) - Cardiovascular Rhythm: regular Heart Sounds: Present: S1 & S2 - Gastrointestinal General gastrointestinal: Present: soft, tender (slight TTP in epigastric area), non-distended, normal bowel sounds - Neurologic Neurological: alert and oriented x3 - Labs CBC & Chem 7: 03/21/18 04:34 03/21/18 04:34 Labs: Laboratory Results - last 24 hr 03/20/18 03/20/18 03/21/18 13:22 15:40 04:34 WBC 7.0 RBC 3.77 Hgb 9.7 L 8.9 L Hct 30.2 L 27.7 L MCV 73 L MCH 24 L MCHC 32 RDW 17.3 H Plt Count 337 Sodium Potassium Chloride Carbon Dioxide Anion Gap BUN Creatinine Estimated GFR BUN/Creatinine Ratio Glucose Calcium Urine Color Yellow Urine Turbidity Clear Urine pH 6.0 Ur Specific [place] 1.017 Urine Protein <15 mg/dl Urine Glucose (UA) Neg Urine Ketones Neg Urine Blood Neg Urine Nitrite Neg Urine Bilirubin Neg Urine Urobilinogen 4.0 Ur Leukocyte Esterase Sm Urine WBC (Auto) 14.0 H Urine RBC (Auto) 7.0 U Epithel Cells (Auto) 3.0 Urine Bacteria (Auto) 1+ Urine Mucus Few 03/21/18 04:34 WBC RBC Hgb Hct MCV MCH MCHC RDW Plt Count Sodium 142 Potassium 3.7 Chloride 106.3 Carbon Dioxide 25 Anion Gap 14 BUN 8 Creatinine 0.9 Estimated GFR > 60 BUN/Creatinine Ratio 9 Glucose 97 Calcium 8.6 Urine Color Urine Turbidity Urine pH Ur Specific [place] Urine Protein Urine Glucose (UA) Urine Ketones Urine Blood Urine Nitrite Urine Bilirubin Urine Urobilinogen Ur Leukocyte Esterase Urine WBC (Auto) Urine RBC (Auto) U Epithel Cells (Auto) Urine Bacteria (Auto) Urine Mucus <CORINNE PAGE A - Last Filed: 03/21/18 17:01> Assessment and Plan pt seen and examined. agree with note as above. monitor overnight and possible d/c tomorrow if no signs of bleeding and h/h stable. will need to be on PPI BID dosing and no nsaid's Objective - Constitutional Vitals: Temp Pulse Resp BP Pulse Ox 98.1 F 60 15 150/70 99 03/21/18 16:12 03/21/18 16:12 03/21/18 16:12 03/21/18 16:12 03/21/18 16:12 - Labs CBC & Chem 7: 03/21/18 04:34 03/21/18 04:34 Labs: Laboratory Results - last 24 hr 03/20/18 03/21/18 03/21/18 15:40 04:34 04:34 WBC 7.0 RBC 3.77 Hgb 8.9 L Hct 27.7 L MCV 73 L MCH 24 L MCHC 32 RDW 17.3 H Plt Count 337 Sodium 142 Potassium 3.7 Chloride 106.3 Carbon Dioxide 25 Anion Gap 14 BUN 8 Creatinine 0.9 Estimated GFR > 60 BUN/Creatinine Ratio 9 Glucose 97 Calcium 8.6 Urine Color Yellow Urine Turbidity Clear Urine pH 6.0 Ur Specific [place] 1.017 Urine Protein <15 mg/dl Urine Glucose (UA) Neg Urine Ketones Neg Urine Blood Neg Urine Nitrite Neg Urine Bilirubin Neg Urine Urobilinogen 4.0 Ur Leukocyte Esterase Sm Urine WBC (Auto) 14.0 H Urine RBC (Auto) 7.0 U Epithel Cells (Auto) 3.0 Urine Bacteria (Auto) 1+ Urine Mucus Few
--- NOTE | 2018-03-21 15:54 | Progress Note ---
Assessment and Plan Assessment and plan: Patient is a 53 y/o female with PMH of ankylosing spondylitis and obesity who presented to ED with c/o upper abdominal pain and N/V x 3 days with bloody emesis to which GI has been consulted. This morning patient was resting in bed w/o acute distress. Family at bedside. She reports starting Cipro for an UTI last week and then developed abd pain with N/V for 2-3 days. Emesis was non- bloody for the first couple of days and then turned to coffee-ground color, along with black stools yesterday. No hematemesis or hematochezia. Last episode of coffee-ground emesis was yesterday and last episode of melena was overnight. No active signs of bleeding this am. Denies CP, SOB, dizziness, wt loss, dysphagia, odynophagia, diarrhea, or constipation. Takes Ibuprofen frequently at home. Hx of previous GI bleeding 2/2 a M-W tear approximately 19 years ago diagnosed with undergoing an EGD. No hx of liver disease. On admission the patient was being monitored with serial H&H and plan for endoscopy today. She was provided about NSAID use to discontinue. Peritoneal Irritation UGIB PYURIA- RECENTLY TREATED FOR UTI HYPOKALEMIA Morbidly Obese NSAID USE ANKYLOSING SPONDYLITIS PLAN Supportive care H/H Relatively stable EGD results reviewed cratered gastric ulcer w/o high risk bleeding stigmata and severe erosive gastritis CONTINUE PPI Patient's Will follow at the GI office for pathology results. DVT/GI PROPHY PLAN DISCUSSED WITH THE PATIENT. Discharge in a.m. if hemoglobin remains stable History Interval history: Patient seen and examined, in no acute distress. admitted with suspicion for GI bleed. Reports one black stool today but no other complaints. Hospitalist Physical - Physical exam Narrative exam: VITAL SIGNS: Reviewed. GENERAL: The patient appeared well nourished and normally developed. Otherwise obese. Vital signs as documented. HEAD: No signs of head trauma. EYES: Pupils are equal. Extraocular motions intact. EARS: Hearing grossly intact. MOUTH: Oropharynx is normal. NECK: No adenopathy, no JVD. CHEST: Chest with clear breath sounds bilaterally. No wheezes, rales, or rhonchi. CARDIAC: Regular rate and rhythm. S1 and S2, without murmurs, gallops, or rubs. VASCULAR: No Edema. Peripheral pulses normal and equal in all extremities. ABDOMEN: Soft, without detectable tenderness. No sign of distention. No rebound or guarding, and no masses palpated. Bowel Sounds normal. MUSCULOSKELETAL: Good range of motion of all major joints. Extremities without clubbing, cyanosis or edema. NEUROLOGIC EXAM: Alert and oriented x 3. No focal sensory or strength deficits. Speech normal. Follows commands. PSYCHIATRIC: Mood normal. SKIN: No rash or lesions. - Constitutional Vitals: Temp Pulse Resp BP Pulse Ox 98.0 F 79 16 145/71 98 03/21/18 12:40 03/21/18 12:40 03/21/18 12:40 03/21/18 12:40 03/21/18 12:40 Results - Labs CBC & Chem 7: 03/21/18 04:34 03/21/18 04:34 Labs: Laboratory Last Values WBC 7.0 K/mm3 (4.5-11.0) 03/21/18 04:34 RBC 3.77 M/mm3 (3.65-5.03) 03/21/18 04:34 Hgb 8.9 gm/dl (10.1-14.3) L 03/21/18 04:34 Hct 27.7 % (30.3-42.9) L 03/21/18 04:34 MCV 73 fl (79-97) L 03/21/18 04:34 MCH 24 pg (28-32) L 03/21/18 04:34 MCHC 32 % (30-34) 03/21/18 04:34 RDW 17.3 % (13.2-15.2) H 03/21/18 04:34 Plt Count 337 K/mm3 (140-440) 03/21/18 04:34 Lymph % (Auto) 17.2 % (13.4-35.0) 03/20/18 06:10 [place] % (Auto) 5.9 % (0.0-7.3) 03/20/18 06:10 Eos % (Auto) 1.0 % (0.0-4.3) 03/20/18 06:10 Baso % (Auto) 0.4 % (0.0-1.8) 03/20/18 06:10 Lymph # 1.7 K/mm3 (1.2-5.4) 03/20/18 06:10 [place] # 0.6 K/mm3 (0.0-0.8) 03/20/18 06:10 Eos # 0.1 K/mm3 (0.0-0.4) 03/20/18 06:10 Baso # 0.0 K/mm3 (0.0-0.1) 03/20/18 06:10 Seg Neutrophils % 75.5 % (40.0-70.0) H 03/20/18 06:10 Seg Neutrophils # 7.4 K/mm3 (1.8-7.7) 03/20/18 06:10 Sodium 142 mmol/L (137-145) 03/21/18 04:34 Potassium 3.7 mmol/L (3.6-5.0) 03/21/18 04:34 Chloride 106.3 mmol/L (98-107) 03/21/18 04:34 Carbon Dioxide 25 mmol/L (22-30) 03/21/18 04:34 Anion Gap 14 mmol/L 03/21/18 04:34 BUN 8 mg/dL (7-17) 03/21/18 04:34 Creatinine 0.9 mg/dL (0.7-1.2) 03/21/18 04:34 Estimated GFR > 60 ml/min 03/21/18 04:34 BUN/Creatinine Ratio 9 % 03/21/18 04:34 Glucose 97 mg/dL (65-100) 03/21/18 04:34 Lactic Acid 0.90 mmol/L (0.7-2.0) 03/19/18 15:25 Calcium 8.6 mg/dL (8.4-10.2) 03/21/18 04:34 Total Bilirubin 0.30 mg/dL (0.1-1.2) 03/20/18 06:10 AST 19 units/L (5-40) 03/20/18 06:10 ALT 13 units/L (7-56) 03/20/18 06:10 Alkaline Phosphatase 69 units/L (35-129) 03/20/18 06:10 Total Protein 7.3 g/dL (6.3-8.2) 03/20/18 06:10 Albumin 3.2 g/dL (3.9-5) L 03/20/18 06:10 Albumin/Globulin Ratio 0.8 % 03/20/18 06:10 Urine Color Yellow (Yellow) 03/20/18 15:40 Urine Turbidity Clear (Clear) 03/20/18 15:40 Urine pH 6.0 (5.0-7.0) 03/20/18 15:40 Ur Specific [place] 1.017 (1.003-1.030) 03/20/18 15:40 Urine Protein <15 mg/dl mg/dL (Negative) 03/20/18 15:40 Urine Glucose (UA) Neg mg/dL (Negative) 03/20/18 15:40 Urine Ketones Neg mg/dL (Negative) 03/20/18 15:40 Urine Blood Neg (Negative) 03/20/18 15:40 Urine Nitrite Neg (Negative) 03/20/18 15:40 Urine Bilirubin Neg (Negative) 03/20/18 15:40 Urine Urobilinogen 4.0 mg/dL (<2.0) 03/20/18 15:40 Ur Leukocyte Esterase Sm (Negative) 03/20/18 15:40 Urine WBC (Auto) 14.0 /HPF (0.0-6.0) H 03/20/18 15:40 Urine RBC (Auto) 7.0 /HPF (0.0-6.0) 03/20/18 15:40 U Epithel Cells (Auto) 3.0 /HPF (0-13.0) 03/20/18 15:40 Urine Bacteria (Auto) 1+ /HPF (Negative) 03/20/18 15:40 Urine Mucus Few /HPF 03/20/18 15:40 Nutrition/Malnutrition Assess - Dietary Evaluation Nutrition/Malnutrition Findings: Nutrition Notes Start: 03/20/18 15:49 Freq: Status: Active Protocol: Document 03/20/18 15:49 RM (Rec: 03/20/18 16:00 RM [id number]) Nutrition Notes Need for Assessment generated from: MD Order Initial or Follow up Brief Note Other Pertinent Diagnosis GI bleed, Abdominal pain, N/V, UTI Current Diet Full liquid Labs/Tests Reviewed Pertinent Medications Reviewed Height 5 ft 5 in Weight 134 kg Usual Body Weight 136.34 kg [place] Body Weight (lbs) 125.0 BMI 49.1 Weight change and time frame 1.7% wt loss X 2 months Subjective/Other Information Consulted for nutrition and oral supplement recommendations. NPO in place earlier today. Full liquid diet ordered later today. Pt had not received a meal yet but was eating yogurt at time of visit. Stated that her appetite is good. Stated UBW was 300 lbs a couple months ago. Burn Absent Trauma Absent Is patient on ventilator? No Is Patient Ambulatory and/or Out of Bed Yes REE-([facility]-ambulatory/OOB) [ 2523.144 [id number]] Kcal/Kg value to use for calculation 15 Approximate Energy Requirements Using 2010 kcal/Kg Calculation Used for Recommendations [facility] Additional Notes Protein Needs: 76-95g (0.8-1g/ kg, 95kg adjBW) Fluid Needs: 1 ml/kcal Nutrition Intervention Follow-Up By: 03/22/18 Additional Comments Follow for PO intakes, need for supplement
[2018-03-21] MEDS: PROTONIX PO SCH (21:27)
[2018-03-22] MEDS: APRESOLINE IV PRN (06:52)
[2018-03-22] MEDS ORDERED: NACL 0.9% 1000 ML 1,000 ML IV SCH (09:00)
[2018-03-22] MEDS: PROTONIX PO SCH (10:08)
[2018-03-22] MEDS: SODIUM CHLORIDE FLUSH SYRINGE 10 ML IV SCH (10:08)
[2018-03-22 10:15] LABS: Hemoglobin 9.3 gm/dl (10.1-14.3)
[2018-03-22] MEDS ORDERED: APRESOLINE IV PRN (10:31)
[2018-03-22] MEDS: ROCEPHIN/NS 2 GM/100 ML 2 GM/100 ML BAG IV SCH (10:31)
--- NOTE | 2018-03-22 10:33 | Discharge Summary ---
Providers - Providers Date of Admission: 03/19/18 18:46 Attending physician: JACK PAGAN MD 03/19/18 18:38 Consult to Physician [CONS] Routine Comment: Consulting Provider: CORINNE PAGE Physician Instructions: Reason For Exam: gi bleed. 03/20/18 06:36 Consult to Dietitian/Nutrition [CONS] Routine Physician Instructions: Reason For Exam: Reason for Consult: Nutrition Recommendations Reason for Consult: Pt needs oral supplement Primary care physician: COMMUNICATION PROFESSOR Hospitalization Reason for admission: GI bleed Condition: Stable Hospital course: Patient is a 53 y/o female with PMH of ankylosing spondylitis and obesity who presented to ED with c/o upper abdominal pain and N/V x 3 days with bloody emesis to which GI has been consulted. This morning patient was resting in bed w/o acute distress. Family at bedside. She reports starting Cipro for an UTI last week and then developed abd pain with N/V for 2-3 days. Emesis was non- bloody for the first couple of days and then turned to coffee-ground color, along with black stools yesterday. No hematemesis or hematochezia. Last episode of coffee-ground emesis was yesterday and last episode of melena was overnight. No active signs of bleeding this am. Denies CP, SOB, dizziness, wt loss, dysphagia, odynophagia, diarrhea, or constipation. Takes Ibuprofen frequently at home. Hx of previous GI bleeding 2/2 a M-W tear approximately 19 years ago diagnosed with undergoing an EGD. No hx of liver disease. On admission the patient was being monitored with serial H&H and plan for endoscopy today. She was advised about NSAID use to discontinue. Patient underwent EGD that showed that revealed a large cratered gastric ulcer w/o high risk bleeding stigmata and severe erosive gastritis. BID ppi and follow up with GI for pathology was advised. The patient was also noted to have elevated BP and started on combination meidcation with recommendation to follow with PCP and monitor renal function. Hemoglobin remained stable on discharge. Peritoneal Irritation UGIB PYURIA- RECENTLY TREATED FOR UTI HYPOKALEMIA Morbidly Obese NSAID USE ANKYLOSING SPONDYLITIS Disposition: - TO HOME OR SELFCARE Time spent for discharge: 35 mins Core Measure Documentation - Palliative Care Palliative Care/ Comfort Measures: Not Applicable - Core Measures Any of the following diagnoses?: none Exam - Physical Exam Narrative exam: VITAL SIGNS: Reviewed. GENERAL: The patient appeared well nourished and normally developed. Otherwise obese. Vital signs as documented. HEAD: No signs of head trauma. EYES: Pupils are equal. Extraocular motions intact. EARS: Hearing grossly intact. MOUTH: Oropharynx is normal. NECK: No adenopathy, no JVD. CHEST: Chest with clear breath sounds bilaterally. No wheezes, rales, or rhonchi. CARDIAC: Regular rate and rhythm. S1 and S2, without murmurs, gallops, or rubs. VASCULAR: No Edema. Peripheral pulses normal and equal in all extremities. ABDOMEN: Soft, without detectable tenderness. No sign of distention. No rebound or guarding, and no masses palpated. Bowel Sounds normal. MUSCULOSKELETAL: Good range of motion of all major joints. Extremities without clubbing, cyanosis or edema. NEUROLOGIC EXAM: Alert and oriented x 3. No focal sensory or strength deficits. Speech normal. Follows commands. PSYCHIATRIC: Mood normal. SKIN: No rash or lesions. - Constitutional Vitals: Temp Pulse Resp BP Pulse Ox 97.9 F 55 L 20 180/72 97 03/22/18 06:17 03/22/18 06:52 03/22/18 06:17 03/22/18 06:52 03/22/18 06:17 Plan Activity: advance as tolerated, fall precautions Diet: low fat Special Instructions: record daily weights, record daily BP diary Follow up with: CORINNE PAGE MD [Staff Physician] - 7 Days PRIMARY CARE, [Primary Care Provider] - 7 Days Prescriptions: hydroCHLOROthiazide [HCTZ] 25 mg PO QDAY #30 tablet Lisinopril/Hydrochlorothiazide [Zestoretic 20-12.5 mg] 1 tab PO QDAY #30 tab Pantoprazole [Protonix TAB] 40 mg PO BID #60 tablet
[2018-03-22] MEDS ORDERED: HCTZ PO SCH (11:00)
[2018-03-22] MEDS ORDERED: ZESTRIL PO SCH (11:00)
--- NOTE | 2018-03-22 12:01 | Gastroenterology Progress Note ---
Assessment and Plan 1.UGIB -H/H 9.3/29.0-trending up -continue to monitor H/H and transfuse as needed -s/p EGD that revealed a large cratered gastric ulcer w/o high risk bleeding stigmata and severe erosive gastritis -bx results pending-f/u in clinic -clinically, patient is stable with no active signs of bleeding. Abd pain improved. No N/V. Tolerating diet. -continue PPI BID -avoid NSAIDs -continue supportive care -okay to be d/c per GI standpoint on high dose PPI with follow up in clinic ~2 weeks -will sign off, please call if needed Subjective Date of service: 03/22/18 Principal diagnosis: GI bleed Interval history: Patient resting in bed this am w/o acute distress. Reports last BM with some stool now becoming brown with scant amount of remaining black. Abd pain improved and no N/V. Tolerating diet. Objective - Constitutional Vitals: Temp Pulse Resp BP Pulse Ox 97.9 F 67 20 151/65 97 03/22/18 06:17 03/22/18 10:43 03/22/18 06:17 03/22/18 10:45 03/22/18 06:17 General appearance: no acute distress, obese - Respiratory Respiratory: bilateral: CTA - Cardiovascular Rhythm: regular Heart Sounds: Present: S1 & S2 - Gastrointestinal General gastrointestinal: Present: soft, non-tender, non-distended, normal bowel sounds, other (obese) - Labs CBC & Chem 7: 03/22/18 09:49 03/21/18 04:34 Labs: Laboratory Results - last 24 hr 03/22/18 09:49 Hgb 9.3 L Hct 29.0 L
[2018-03-22 13:31] VITALS: BP 134/55
== END 2018-03-22 16:21 | disposition home or self-care (01) | DRG 377 ==
LOC: ED 08:21 → 3A 18:46 → UNDODISIN 03-21 19:08
PROVIDERS: ADMIT Internal Medicine; ATTEND Internal Medicine
PROC: 0DB78ZX Excision of Stomach, Pylorus, Via Natural or Artificial Opening Endoscopic, Diagnostic (ICD-10-PCS; principal; 2018-03-20)
DX: K29.01 Acute gastritis with bleeding (principal); K65.9 Peritonitis, unspecified; N39.0 Urinary tract infection, site not specified; E44.0 Moderate protein-calorie malnutrition; Z68.42 Body mass index [BMI] 45.0-49.9, adult; E87.6 Hypokalemia; E66.01 Morbid (severe) obesity due to excess calories; M45.9 Ankylosing spondylitis of unspecified sites in spine; Z71.3 Dietary counseling and surveillance
CPT/HCPCS: 36415; 74177; 80048; 80053; 81001; 82140; 85014; 85018; 85025; 85027; 88305; 88312; 88342; G0378; C9113; J0360; J0696; J1170; J2250; J2405; J2704; J7030; Q9967